=== PATIENT | female | born 1970 | race Caucasian/White ===

== ENCOUNTER 2017-03-06 15:39 | Emergency (ER) | payer BC ==
--- NOTE | 2017-03-06 15:43 | ED Physician Documentation ---
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 denies: fever, recent illness CVS/RESP: denies: chest pain, shortness of breath, cough GI/: denies: abdominal pain, vomiting, nausea, diarrhea MS/SKIN/LYMPH: none NEURO/PSYCH: dizziness, difficulty walking. denies: headache, fainting, numbness, difficulty with speech - PAST HX Past History: other (HTN ) Other History: none, other Surgeries/Procedures: other (left shoulder , csection, knee replacement (last month) gallbladder, oblasion ) Immunizations: referred to PCP - SOCIAL HX Smoking History: quit greater than 1 year Alcohol Use: none Drug Use: none - FAMILY HX Family History: Yes (fator IV ) - REVIEWED ASSESSMENTS Nursing Assessment Reviewed: Yes Vitals Reviewed: Yes <Elisabet Arellano - Last Filed: 03/06/17 17:42> - VITAL SIGNS Vital Signs: Vital Signs Temp Pulse Resp BP Pulse Ox 99.2 F 93 H 16 95/57 98 03/06/17 15:45 03/06/17 16:50 03/06/17 15:45 03/06/17 16:50 03/06/17 15:45 <Steven Marroquin - Last Filed: 03/06/17 17:45> - PAST HX Allergies/Adverse Reactions: Allergies Allergy/AdvReac Type Severity Reaction Status Date / Time No Known Allergies Allergy Verified 03/06/17 16:09 Home Medications: Ambulatory Orders Medication Instructions Recorded Aspirin EC [Ecotrin] 81 mg PO DAILY 03/06/17 Cyclobenzaprine HCl 10 mg PO TID PRN 03/06/17 [Cyclobenzaprine HCl] Lisinopril/Hydrochlorothiazide 1 each PO DAILY 03/06/17 [Zestoretic] Naproxen [Naproxen] 250 mg PO BID 03/06/17 Omeprazole [Omeprazole] 20 mg PO DAILY 03/06/17 Simvastatin [Zocor] 40 mg PO DAILY 03/06/17 Sumatriptan Succinate [Sumatriptan 25 mg PO Q2H PRN 03/06/17 Succinate] Trazodone HCl [Trazodone HCl] 25 mg PO HS PRN 03/06/17 Progress - Progress Progress: 1443: she is awake and alert - denies pain (she does feel cold at this time) She is starting to get hungry (given sprite and she will eat some of her family member's food) No chest pain Fatigue + 1735 Resolution in Nausea - she is feeling better - she wishes to go home <Elisabet Arellano - Last Filed: 03/06/17 17:42> - Progress Progress: I have reviewed assessment and plan and agree as it is outlined. Steven Marroquin MD <Steven Marroquin - Last Filed: 03/06/17 17:45> ED Results Lab/Radiology - Radiology Radiology Impressions: Examination: Portable chest History: Chest discomfort Comparison exam: None provided Findings: Single view of the chest demonstrates a normal cardiac and mediastinal silhouette. Lung wilson without focal infiltrate. No effusion. [place] of shadows at the left cardiac apex. Osseous structures are appropriate for age. Impression: No acute pulmonary process. <Elisabet Arellano - Last Filed: 03/06/17 17:42> - Lab Results Lab Results: Lab Results 03/06/17 03/06/17 03/06/17 15:56 15:56 15:56 WBC 17.60 K/ul H K/ul (4.00-12.00) RBC 4.26 M/ul M/ul (3.90-5.20) Hgb 13.2 g/dL g/dL (12.0-16.0) Hct 37.2 % % (34.5-46.5) MCV 87.5 fl fl (80.0-100.0) MCH 31.0 pg pg (28.0-34.0) MCHC 35.4 g/dL g/dL (30.0-36.0) RDW 12.7 % % (11.3-14.3) Plt Count 334 K/mm3 K/mm3 (130-400) Neut % (Auto) 74.2 % % (39.0-79.0) Lymph % (Auto) 19.0 % % (16.0-50.0) [place] % (Auto) 3.6 % % (0.0-11.0) Eos % (Auto) 2.0 % % (0.0-6.8) Baso % (Auto) 0.6 (0.0-1.5) Neut # (Auto) 13.0 # k/uL H # k/uL (1.4-7.7) Lymph # (Auto) 3.3 # k/uL # k/uL (0.6-4.0) [place] # (Auto) 0.6 # k/uL # k/uL (0.0-0.9) Eos # (Auto) 0.4 # k/uL # k/uL (0.0-0.6) Baso # (Auto) 0.1 # k/uL # k/uL (0.0-0.5) Reactive Lymphs % 0.6 % % (0.0-5.0) Reactive Lymphs # 0.1 # k/uL # k/uL (0.0-0.8) D-Dimer 665 ng/mL ng/mL (6.0-682) Sodium 139 mmol/L mmol/L (137-145) Potassium 3.7 mmol/L mmol/L (3.5-5.1) Chloride 103 mmol/L mmol/L (98-107) Carbon Dioxide 22 mmol/L mmol/L (22-30) BUN 18 mg/dL H mg/dL (7-17) Creatinine 2.00 mg/dL H mg/dL (0.52-1.04) Estimated Creat Clear 64 Est GFR ( Amer) 35 L (60 - ) Est GFR (Non-Af Amer) 29 L (60 - ) Glucose 138 mg/dL H mg/dL (74-106) Calcium 9.6 mg/dL mg/dL (8.4-10.2) Total Bilirubin 0.5 mg/dL mg/dL (0.2-1.3) AST 15 U/L U/L (15-46) ALT 30 U/L U/L (13-69) Alkaline Phosphatase 90 U/L U/L (38-126) Troponin I < 0.03 ng/mL L ng/mL (0.03-0.06) Total Protein 8.0 g/dL g/dL (6.3-8.2) Albumin 4.4 g/dL g/dL (3.5-5.0) - Orders Orders: ED Orders Category Date Time Status Orthostatics 1T Care 03/06/17 17:[address] IV Lock 1T Care 03/06/17 15:46 Active CHEST 1 VIEW [RAD] Stat Exams 03/06/17 Completed CBC/PLATELET/DIFF Routine Lab 03/06/17 15:56 Completed CMP [CMP] Routine Lab 03/06/17 15:56 Completed D DIMER Stat Lab 03/06/17 15:56 Completed TROPONIN I (cTnI) Stat Lab 03/06/17 15:56 Completed UA W/MICRO IF INDICATED Routine Lab 03/06/17 17:30 Ordered 0.9 % Sodium Chloride [Normal Saline] 1,000 ml Med 03/06/17 15:46 Discontinued IV Q1H 0.9 % Sodium Chloride [Normal Saline] 1,000 ml Med 03/06/17 16:35 Discontinued IV Q1H Chem Sticks Med 03/06/17 15:45 Ordered 1 each 1T Ondansetron HCl/Pf [Zofran 4 mg/2 ml] Med 03/06/17 17:10 Discontinued 4 mg .ROUTE .STK-MED ONE Ondansetron HCl/Pf [Zofran 4 mg/2 ml] Med 03/06/17 17:18 Discontinued 4 mg IVP NOW ONE EKG WITH COMPARISON Stat Ther 03/06/17 Ordered <Steven Marroquin - Last Filed: 03/06/17 17:45> General Adult Physical Exam - PHYSICAL EXAM GENERAL APPEARANCE: no distress EENT: ENT inspection normal, CASIE NECK: normal inspection RESPIRATORY: no resp distress, chest non-tender, breath sounds normal CVS: reg rate & rhythm, heart sounds normal, equal pulses ABDOMEN: soft, no organomegaly, normal bowel sounds BACK: normal inspection, other (mild pain to palpation in lower back no injury noted ) SKIN: diaphoresis, pallor EXTREMITIES: non-tender NEURO: oriented X3, CN's nml as tested, motor nml, sensation nml, mood/affect nml, cognition normal <Elisabet Arellano - Last Filed: 03/06/17 17:42> Discharge Decision to Admit: NO Date of Decison to Admit: 03/06/17 Decision Time: 17:39 <Elisabet Arellano - Last Filed: 03/06/17 17:42> <Steven Marroquin - Last Filed: 03/06/17 17:45> Clincal Impression: Hypotension Qualifiers: Hypotension type: other hypotension type Qualified Code(s): I95.89 - Other hypotension Referrals: Primary Doctor,No [Primary Care Provider] - 2 Days Condition: Stable Disposition: 01 HOME, SELF-CARE
[2017-03-06] MEDS ORDERED: 0.9 % SODIUM CHLORIDE 1,000 ML IV ONE ×2 (15:46→16:35)
[2017-03-06 16:03] LABS: BASOPHILS % 0.6 (0.0-1.5); MEAN CORPUSCULAR VOLUME 87.5 fl (80.0-100.0); MONOCYTES % 3.6 % (0.0-11.0)
--- NOTE | 2017-03-06 16:31 | Diagnostic Imaging Report ---
[facility] [id number] [facility] [address] [place], [place]. [address] Report Submission Date: Mar 06, 2017 4:22:03 PM CDT Patient Study Name: MELQUIADES ARDON Date: Mar 06, 2017 4:06:30 PM CDT Modality Type: CR Gender: F Description: CHEST : 72 Institution: [facility] Physician: LANEY SINGH Examination: Portable chest History: Chest discomfort Comparison exam: None provided Findings: Single view of the chest demonstrates a normal cardiac and mediastinal silhouette. Lung wilson without focal infiltrate. No effusion. [place] of shadows at the left cardiac apex. Osseous structures are appropriate for age. Impression: No acute pulmonary process. Electronically signed on Mar 06, 2017 4:22:03 PM CDT by: Pedro Pablo SANTANA
[2017-03-06] MEDS ORDERED: ONDANSETRON HCL/PF 4 MG/ 2ML VIAL ONE (17:10)
[2017-03-06] MEDS ORDERED: ONDANSETRON HCL/PF 4 MG/ 2ML VIAL IVP ONE (17:18)
[2017-03-06 17:52] VITALS: BP 111/55
[2017-03-07 12:24] LABS: APPEARANCE,URINE CLOUDY (CLEAR); COLOR,URINE YELLOW (YELLOW); OCCULT BLOOD,URINE TRACE-INTACT (NEGATIVE); UROBILINOGEN URINE 0.2 Eu (0.2-1.0)
== END 2017-03-06 17:50 | disposition home or self-care (01) ==
LOC: ED 15:39
DX: I95.89 Other hypotension (principal)
CPT/HCPCS: 71010; 80053; 81002; 84484; 85025; 85379; J2405; J7030; 96361; 96374; 99283; S1016